=== PATIENT | male | born 1975 | race Caucasian/White ===

== ENCOUNTER 2016-12-10 20:13 | Emergency (ER) | payer OTHER ==
[~2016-12-10] VITALS: Ht 182.9 cm; Wt 117.9 kg
[2016-12-10 20:15] VITALS: BP 149/85
[2016-12-10] MEDS ORDERED: UNKNOWN MED (20:18)
[2016-12-10] MEDS ORDERED: LEXAPRO 10 MG T10 M1 PO (20:36)
[2016-12-10] MEDS ORDERED: XANAX 0.5 MG0.5 MG PO (20:37)
[2016-12-10] MEDS ORDERED: NAPROSYN500 MG PO (20:55)
[2016-12-10] MEDS ORDERED: KEFLEX500 MG PO (20:55)
== END 2016-12-10 21:04 | disposition home or self-care (01) ==
LOC: ER 20:13
DX: S60.450A Superficial foreign body of right index finger, initial encounter (principal); B07.9 Viral wart, unspecified; F10.99 Alcohol use, unspecified with unspecified alcohol-induced disorder; X58.XXXA Exposure to other specified factors, initial encounter; Y93.89 Activity, other specified; Y92.89 Other specified places as the place of occurrence of the external cause; Y99.8 Other external cause status